=== PATIENT | female | born 1980 | race Two or more races ===

== ENCOUNTER → 2019-04-24 | Outpatient (CLI) | payer OTHER ==
[~2019-04-24] MED LIST: CHLORDIAZEPOXIDE5 MG PO; INTESTINEX680 MG PO
== END | disposition home or self-care (01) ==
LOC: RX STUDY 09:24
DX: N80.8 Other endometriosis (principal)

== ENCOUNTER → 2020-12-01 | Outpatient (CLI) | payer OTHER | END | disposition home or self-care (01) | LOC: NST 15:36 | PROVIDERS: ATTEND Obstetrics & Gynecology | DX: Z34.83 Encounter for supervision of other normal pregnancy, third trimester (principal) ==

== ENCOUNTER 2020-12-25 09:19 | Outpatient (CLI) | payer OTHER | END 2020-12-25 10:05 | disposition home or self-care (01) | LOC: NST 09:19 | PROVIDERS: ATTEND Obstetrics & Gynecology | DX: Z34.83 Encounter for supervision of other normal pregnancy, third trimester (principal) ==